=== PATIENT | male | born 1975 | race Caucasian/White ===

== ENCOUNTER 2018-07-13 01:21 | Outpatient (CLI) | payer MEDICAID, SELFPAY ==
--- NOTE | 2018-07-13 16:10 | DI.RAD_ITS ---
SYMPTOM/DIAGNOSIS: LT KNEE PAIN, M25.562 LEFT KNEE: The patient is status post ACL repair. The joint spaces are intact. There are minimal periarticular degenerative changes. There is no evidence of a joint effusion.
== END 2018-07-13 01:41 ==
PROVIDERS: PCP Nurse Practitioner Family; Visit Provider Orthopaedic Surgery
DX: M25.562 Pain in left knee (principal); Z98.890 Other specified postprocedural states
CPT/HCPCS: 73564

== ENCOUNTER 2018-08-10 00:33 | Outpatient (CLI) | payer MEDICAID, SELFPAY ==
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
== END 2018-08-10 00:53 ==
PROVIDERS: PCP Nurse Practitioner Family; Visit Provider Orthopaedic Surgery
DX: M25.562 Pain in left knee (principal); S83.282A Other tear of lateral meniscus, current injury, left knee, initial encounter; S83.512A Sprain of anterior cruciate ligament of left knee, initial encounter; Z98.890 Other specified postprocedural states
CPT/HCPCS: 73721

== ENCOUNTER 2019-01-05 09:13 | Outpatient (REF) | payer MEDICAID, SELFPAY ==
[2019-01-05 21:39] LABS: Anion Gap 10.5 mmol/L (3-11); BUN 15 mg/dL (7-18); CO2 28.5 mmol/L (21.0-32.0); CREATININE 1.06 mg/dL (0.70-1.30); Calcium 9.3 mg/dL (8.5-10.1); Chloride 103 mmol/L (98-107); Glucose 112 mg/dL (70-100); Potassium 4.1 mmol/L (3.5-5.1); Sodium 142 mmol/L (136-145)
[2019-01-07 10:35] LABS: HIV-1/2 Ag & Ab Screen Negative (NEGAT)
[2019-01-09 11:36] LABS: Hepatitis B Surface Ag Negative (NEGAT)
[2019-01-09 11:42] LABS: HBs Antibody, Quant <3.1 mIU/mL; Hepatitis B Surface Ab Negative; Hepatitis C Ab w Rflx HCV PCR Negative (NEGAT)
[2019-01-09 12:08] LABS: Syphilis Serology (RPR) Negative (Negative)
[2019-01-09 12:24] LABS: Hep A Total Ab w Rflx IgM Negative (NEGAT)
[2019-01-09 15:24] LABS: Chlamydia Result Negative; GC Result Negative; Specimen Description URINE
== END 2019-01-05 09:33 ==
LOC: NCHCN 09:13
PROVIDERS: PCP Nurse Practitioner Family; Visit Provider Nurse Practitioner Family
DX: Z11.3 Encounter for screening for infections with a predominantly sexual mode of transmission (principal); Z11.59 Encounter for screening for other viral diseases; Z01.84 Encounter for antibody response examination; Z00.00 Encounter for general adult medical examination without abnormal findings; Z11.4 Encounter for screening for human immunodeficiency virus [HIV]
CPT/HCPCS: 80048; 86706; 86709; 86803; 87340; 87389; 87491; 87591; 86592

== ENCOUNTER 2019-02-13 17:35 | Outpatient (REF) | payer MEDICAID, SELFPAY ==
[2019-02-13 22:28] LABS: Calculated LDL 219 mg/dL; Cholesterol 289 mg/dL (50-200); Glucose 94 mg/dL (70-100); HDL Cholesterol 51 mg/dL (40-60); Triglyceride 97 mg/dL (30-150)
[2019-02-15 12:27] LABS: Hepatitis C Ab w Rflx HCV PCR Negative (NEGAT)
[2019-02-15 12:30] LABS: HIV-1/2 Ag & Ab Screen Negative (NEGAT)
[2019-02-16 14:45] LABS: Hepatitis B Surface Ag Negative (NEGAT)
== END 2019-02-13 17:55 ==
LOC: NCHCN 17:35
PROVIDERS: PCP Nurse Practitioner Family; Visit Provider Nurse Practitioner Family
DX: Z13.1 Encounter for screening for diabetes mellitus (principal); Z11.59 Encounter for screening for other viral diseases; Z11.4 Encounter for screening for human immunodeficiency virus [HIV]; Z13.220 Encounter for screening for lipoid disorders; Z11.3 Encounter for screening for infections with a predominantly sexual mode of transmission; Z00.00 Encounter for general adult medical examination without abnormal findings
CPT/HCPCS: 80061; 82947; 86803; 87340; 87389

== ENCOUNTER 2020-01-29 17:17 | Outpatient (REF) | payer MEDICAID, SELFPAY ==
[2020-01-29 20:23] LABS: Calculated LDL 200 mg/dL (<100); Cholesterol 290 mg/dL (<200); Glucose 95 mg/dL (74-106); HDL Cholesterol 53 mg/dL (40-60); Triglyceride 185 mg/dL (<150)
== END 2020-01-29 17:37 ==
LOC: NCHCN 17:17
PROVIDERS: PCP Nurse Practitioner Family; Visit Provider Nurse Practitioner Family
DX: Z13.1 Encounter for screening for diabetes mellitus (principal); Z13.220 Encounter for screening for lipoid disorders; Z00.00 Encounter for general adult medical examination without abnormal findings
CPT/HCPCS: 80061; 82947

== ENCOUNTER 2020-04-11 22:22 | Outpatient (REF) | payer MEDICAID, SELFPAY ==
[2020-04-11 19:52] LABS: ALT 28 U/L (16-63); AST 20 U/L (15-37); Creatine Kinase 305 U/L (39-308)
[2020-04-11 20:41] LABS: HDL Cholesterol 55 mg/dL (40-60); LDL CHOLESTEROL 124 mg/dL (<100)
== END 2020-04-11 22:42 ==
LOC: NCHCN 22:22
PROVIDERS: PCP Nurse Practitioner Family; Visit Provider Nurse Practitioner Family
DX: E78.5 Hyperlipidemia, unspecified (principal)
CPT/HCPCS: 82550; 83721; 83718; 84450; 84460

== ENCOUNTER 2022-07-23 16:46 | Outpatient (REF) | payer MEDICAID, SELFPAY ==
[2022-07-23 20:22] LABS: ALT 28 U/L (16-63); AST 13 U/L (15-37); HDL Cholesterol 47 mg/dL (40-60); LDL CHOLESTEROL 178 mg/dL (<100)
[2022-07-23 20:44] LABS: Creatine Kinase 253 U/L (39-308)
== END 2022-07-23 16:47 | disposition home or self-care (01) ==
LOC: NCHCN 16:46
PROVIDERS: PCP Nurse Practitioner Family; Visit Provider Nurse Practitioner Family
DX: E78.5 Hyperlipidemia, unspecified (principal)
CPT/HCPCS: 82550; 83721; 83718; 84450; 84460

== ENCOUNTER 2022-11-04 16:33 | Outpatient (REF) | payer MEDICAID, SELFPAY ==
[2022-11-04 20:17] LABS: Cholesterol 244 mg/dL (<200); HDL Cholesterol 48 mg/dL (40-60); Triglyceride 540 mg/dL (<150)
[2022-11-04 20:42] LABS: LDL CHOLESTEROL 137 mg/dL (<100)
[2022-11-06 07:57] LABS: ALT 39 U/L (16-63); Creatine Kinase 345 U/L (39-308)
[2022-11-06 08:31] LABS: AST 18 U/L (15-37)
== END 2022-11-04 16:34 | disposition home or self-care (01) ==
LOC: NCHCN 16:33
PROVIDERS: PCP Nurse Practitioner Family; Visit Provider Nurse Practitioner Family
DX: E78.5 Hyperlipidemia, unspecified (principal)
CPT/HCPCS: 80061; 82550; 83721; 84450; 84460

== ENCOUNTER 2022-11-13 01:20 | Outpatient (CLI) | payer MEDICAID, SELFPAY ==
[2022-11-13 12:46] LABS: Triglyceride 83 mg/dL (<150)
[2022-11-13 13:11] LABS: Creatine Kinase 281 U/L (39-308)
== END 2022-11-13 01:21 | disposition home or self-care (01) ==
LOC: LOS 01:20
PROVIDERS: PCP Nurse Practitioner Family; Visit Provider Nurse Practitioner Family
DX: E78.5 Hyperlipidemia, unspecified (principal)
CPT/HCPCS: 36415; 82550; 84478

== ENCOUNTER 2023-08-02 12:58 | Outpatient (REF) | payer MEDICAID, SELFPAY ==
[2023-08-02 16:16] LABS: ALT 26 U/L (16-63); AST 19 U/L (15-37); Albumin 4.2 g/dL (3.4-5.0); Alkaline Phosphatase 47 U/L (46-116); Anion Gap 8.1 mmol/L (3-11); BUN 15 mg/dL (7-18); Bilirubin, Total 0.3 mg/dL (0.2-1.0); CO2 27.9 mmol/L (21.0-32.0); CREATININE 0.9 mg/dL (0.70-1.30); Calcium 8.6 mg/dL (8.5-10.1); Chloride 108 mmol/L (98-107); Estimated GFR 106.01 (mL/min/1.73m2); Glucose 108 mg/dL (74-106); Potassium 4.8 mmol/L (3.5-5.1); Sodium 144 mmol/L (136-145); Total Protein 7.3 g/dL (6.4-8.2)
== END 2023-08-02 12:59 | disposition home or self-care (01) ==
LOC: NCHCN 12:58
PROVIDERS: PCP Nurse Practitioner Family; Visit Provider Nurse Practitioner Family
DX: E78.5 Hyperlipidemia, unspecified (principal)
CPT/HCPCS: 80053

== ENCOUNTER 2024-08-18 12:51 | Outpatient (REF) | payer MEDICAID, SELFPAY ==
[2024-08-18 15:39] LABS: Hemoglobin A1C 5.8 % (<5.7)
[2024-08-18 16:01] LABS: ALT 29 U/L (16-63); AST 20 U/L (15-37); Albumin 4.2 g/dL (3.4-5.0); Alkaline Phosphatase 52 U/L (46-116); Anion Gap 7.9 mmol/L (3-11); BUN 16 mg/dL (7-18); Bilirubin, Total 0.9 mg/dL (0.2-1.0); CO2 29.1 mmol/L (21.0-32.0); Calcium 9.4 mg/dL (8.5-10.1); Calculated LDL 149 mg/dL (<100); Chloride 106 mmol/L (98-107); Cholesterol 228 mg/dL (<200); Estimated GFR 92.84 (mL/min/1.73m2); Glucose 107 mg/dL (74-106); HDL Cholesterol 60 mg/dL (>or=40); Potassium 4.1 mmol/L (3.5-5.1); Sodium 143 mmol/L (136-145); TSH 1.14 uIU/mL (0.36-3.74); Total Protein 7.4 g/dL (6.4-8.2); Triglyceride 96 mg/dL (<150)
== END 2024-08-18 12:52 | disposition home or self-care (01) ==
LOC: NCHCN 12:51
PROVIDERS: Visit Provider Family Medicine
DX: Z00.00 Encounter for general adult medical examination without abnormal findings (principal)
CPT/HCPCS: 80053; 80061; 83036; 84443

== ENCOUNTER 2025-03-21 18:09 | Emergency (ER) | payer MEDICAID, SELFPAY ==
[2025-03-21 18:15] VITALS: BP 148/83; PULSE 100; RESP 16; TEMP 36.8; O2SAT 96
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
[2025-03-21] MEDS: Normal Saline - Diluent 50 ML VIAL IJ (18:35)
[2025-03-21] MEDS: Omnipaque 350 MG/ML 100 ML BTL IJ (18:35)
[2025-03-21 18:40] VITALS: PULSE 91; O2SAT 96
[2025-03-21 18:41] LABS: Abs Immature Grans 0.02 10^3/uL (0.0-0.06); HCT 38.8 % (40.0-50.0); HGB 13.4 g/dL (13.5-17.5); Immature Grans % 0.3 %; MCH 29.1 pg (27.0-33.0); MCHC 34.5 % (32.0-36.0); MCV 84 fL (80-95); MPV 10.0 fL (8.0-11.0); Platelet Count 280 10^3/uL (130-400); RBC 4.61 10^6/uL (4.36-5.78); RDW 12.2 % (11.8-14.1); RDW-SD 36.6 fL; WBC 7.95 10^3/uL (4.4-10.8)
[2025-03-21] MEDS: diazePAM 10 MG/2 ML SYR 2 MG IVP (18:46)
[2025-03-21] MEDS: ACETAMINOPHEN 1,000 MG/100 ML BAG 400 MG IVPB (18:46)
[2025-03-21 18:57] LABS: ALT 24 U/L (10-49); AST 28 U/L (<34); Albumin 4.7 g/dL (3.2-5.0); Alkaline Phosphatase 45 U/L (46-116); Anion Gap 7.8 mmol/L (3-11); BUN 21 mg/dL (9-23); Bilirubin, Total 0.50 mg/dL (0.2-1.2); CO2 27.2 mmol/L (20.0-31.0); Calcium 9.0 mg/dL (8.3-10.6); Chloride 106 mmol/L (98-107); Glucose 105 mg/dL (74-106); Potassium 3.7 mmol/L (3.5-5.1); Sodium 141 mmol/L (136-145); Total Protein 7.7 g/dL (5.7-8.2)
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
[2025-03-21 19:40] VITALS: BP 139/92; PULSE 80; RESP 16; TEMP 37.5; O2SAT 96
[2025-03-21] MEDS: Cyclobenzaprine 10 MG TAB, 3 TABS/BTL PO (19:52)
== END 2025-03-21 20:03 | disposition home or self-care (01) ==
PROVIDERS: Emergency Provider Emergency Medicine; PCP Family Medicine
DX: S40.011A Contusion of right shoulder, initial encounter (principal); S16.1XXA Strain of muscle, fascia and tendon at neck level, initial encounter; S09.8XXA Other specified injuries of head, initial encounter; V49.49XA Driver injured in collision with other motor vehicles in traffic accident, initial encounter
CPT/HCPCS: 36415; 74177; 80053; 86850; 86900; 86901; 96374; 96375; 99285; 70450; 71260; 72125; 73030; 85025; 99284; J0131; J3360; J3490